=== PATIENT | male | born 1965 ===

== ENCOUNTER 2024-12-24 09:09 | Outpatient (AMB) | payer MEDICARE, SELFPAY ==
--- NOTE | 2024-12-24 09:16 | MHC.OFFWIV ---
Intake Vital Signs 12/24/24 09:19 Weight 207 lb BP 112/74 Blood Pressure Location Rt brachial Position Sitting Pulse 72 Pulse Source Pulse Oximeter Pulse Oximetry (%) 86 L Oxygen Delivery Method Room Air Intake Visit Reasons: [employer] Cough, bromide, albuterol refill Intake Note: Patient here for SOB. Hx of COPD but recently just moved and is looking for some refills. Do you need a note to return to daycare/school/sports/work: No HPI HPI Comments History of Present Illness Details This is a 59-year-old male with past medical history of COPD not currently oxygen dependent, bipolar disorder, ADHD and PTSD requesting refills for his nebulizer. Patient currently lives in a jail house in [facility] for management of polysubstance use however his last use of cocaine was over 6 weeks ago in his last use of fentanyl was in April 2024. Patient does not currently have a primary care provider of record. Patient states since April he has been treated consistently with antibiotic therapy as well as steroids. Patient has been using his Combivent every 2 hours over the past 1 week and states that he will occasionally feel confused ?because I am short of breath?. Patient has 2 more vials for his nebulizer but is requesting a refill. Patient does not currently use tobacco. He denies having any fevers, chills, hemoptysis or chest pain. Patient is oxygenating at 86% on room air. Review of Systems Const All systems reviewed & are unremarkable except as noted in HPI and below Reports no additional complaints Eyes Reports no additional complaints ENT Reports no additional complaints Card Reports no additional complaints, Denies chest pain, Reports dyspnea and Reports dyspnea on exertion Resp Reports no additional complaints, Reports cough, Denies hemoptysis, Reports dyspnea and Reports dyspnea on exertion GI Reports no additional complaints Reports no additional complaints Musc Reports no additional complaints Skin/Breast Reports system reviewed and no additional complaints, except as documented Neuro Reports no additional complaints Endo Reports no additional complaints Curry/Lymph Reports no additional complaints Aller/Immun Reports no additional complaints Physical Exam Patient is afebrile and hypoxic at 86% on room air. Const General: no acute distress, ill appearing and tired appearing; No healthy appearing Nutritional Appearance: average body habitus Orientation/consciousness: patient oriented x3 Limitations: no limitations Resp Effort & Inspection: decreased respiratory effort, labored and prolonged expiratory phase Auscultation: not clear to auscultation bilaterally, rhonchi and wheezes (left > right) Cardio Rate: regular rate Rhythm: regular rhythm Neuro General: patient oriented x3 Psych Appearance: grossly normal Mental Status: mental status grossly normal Affect: normal affect Attitude: cooperative Insight: Limited insight present (Psych) Judgement: Limited judgement present (Psych) Assessment & Plan Assessment & Plan (1) Hypoxia: Comment: Patient is hypoxic on room air. Patient will be transferred to the emergency department for further evaluation and care. Patient is declining ambulance transport and states that his friend will bring him directly to the ED. Code(s): R09.02 - Hypoxemia Plan: Patient will go to the ED via private vehicle; expect called to [facility]nan [id number], [facility] Coding Level of Care Code New Pt Level 4 (95784) Diagnoses Hypoxia R09.02
[2024-12-24 09:19] VITALS: BP 112/74; PULSE 72; O2SAT 86
--- OUTSIDE RECORDS SUMMARY | 2024-12-24 09:29 | XMS_ITS | Continuity of Care Document ---
Author Organization [facility] Address [address] [place] [address] [address] [place] [address] Phone Care Team Providers Care Clinical Quality Rn Name Role Phone Karan YANEZ, Ashok Unavailable Unavailable Allergies, Adverse Reactions, Alerts Substance Reaction Status Criticality oxycodone Unknown Active No Information codeine Unknown Active No Information gabapentin Unknown Active No Information DULOXETINE HCL Unknown Active No Informatio n tramadol seizure Active No Information aspirin Unknown Active No Information Medications Medication Instructions Dosage Effective Dates (start - stop) Status Comments testosterone 1 % (50 mg/5 gram) transdermal gel packet apply 2 packet by topical route every day 2 packet - Active Seroquel 200 mg tablet take 4 tablet by oral route every day 800 MG - Active Adderall 20 mg tablet take 1 tablet by oral route 2 times every day before breakfast 20 MG - Active MS Contin 30 mg tablet,extended release take 1 tablet by oral route every 8 hours 30 MG - Active morphine ER 15 mg tablet,extended release take 1 Tablet by oral route every 3 evenings for pain 1 Tablet - Active ranitidine 300 mg capsule take 1 capsule by oral route every day at bedtime - Active simvastatin 80 mg tablet take 1 tablet by oral route every day in the evening - Active metoclopramide 5 mg tablet take 1 tablet by oral route 4 times every day 30 minutes before meals and at bedtime 5 MG - Active COL-RITE (unknown strength) take 1 capsule by oral route every day at bedtime as needed Not Available - Active Brintellix 10 mg tablet take 1 tablet by oral route every day at the same time each day - Active Jalen Biotin 10,000 mcg capsule - Active vitamin B complex tablet take 1 by Oral route once 1 - Active levothyroxine 75 mcg tablet take 1 tab by Oral route every day 1 tab - Active Procedures Procedure Date Lab_Drug Screen NP_Office Visit Level 5 Advance Directives Directive Yes / No Effective Date File Name No Information Encounters Encounter Description Practice Location Reason(s) For Visit Diagnoses Date Provider [facility], [address] [place], [place] [address], [place], [place], [id number], tel:[phone] [facility] No Information Karan Pulido. [address] [place] [address], [facility], [place], [place], [id number], [place]. tel:[phone] NP_Office Visit Level 5 [facility], [address] [place], [place] [address], [place], [place], [id number], tel:[phone] [facility] Back Pain (chief complaint)L eg Pain (chief complaint) Opioid type dependence, continuous useTherapeutic Drug MonitoringSpondylosis with myelopathy, lumbar region Maryam Andrade. [address] [place] [address], [facility], . tel:[phone] Family History Family Member Type Diagnosis Age At Onset No Information Payers Payer name Insurance type Covered constitution party ID Authoriza tion(s) No Information Social History Type Description Quantity Date Captured Comments Sex Male Smoking Status No Information Chief Complaint And Reason For Visit No Information History Of Present Illness Encounter Date Complaint History Of Prese nt Illness Back Pain Leg Pain Instructions Date Instruction Additional Infor mation No Information Assessments Type Assessment Date No Information
== END 2024-12-24 09:56 | disposition home or self-care (01) ==
PROVIDERS: Visit Provider Physician Assistant
DX: R09.02 Hypoxemia (principal)

== ENCOUNTER → 2024-12-24 09:09 | Outpatient (BNVA) | payer MEDICARE, SELFPAY | PROVIDERS: Visit Provider Physician Assistant ==

== ENCOUNTER 2024-12-24 10:43 | Emergency (ER) | payer MEDICARE, SELFPAY ==
--- NOTE | ~2024-12-24 | XR_ITS ---
EXAMINATION: XR CHEST CLINICAL INFORMATION: SOB COMPARISON: None available. TECHNIQUE: 2 views of the chest were obtained. FINDINGS: Mild reticular pulmonary pattern. No gross consolidation, pleural effusion or pneumothorax. Cardiomediastinal silhouette size is normal. Multilevel thoracic spondylosis, mild. Intraspinal canal neurostimulator electrodes enter in the mid to lower thoracic spine and in at T8 level. XR/XR chest 2V IMPRESSION: No acute airspace disease. Electronically signed by: Vipul Yates MD 12/24/2024 11:53 AM EDT
[2024-12-24 11:27] VITALS: BP 105/73; PULSE 99; RESP 18; TEMP 36.7; O2SAT 89; BMI 29.6
--- NOTE | 2024-12-24 11:28 | ED_ITS ---
HPI - SOB/Dyspnea General Chief Complaint: Dyspnea Stated Complaint: SOB, COPD Time Seen by Provider: 12/24/24 11:55 Related Data Home Medications ?Medication ?Instructions ?Recorded ?Confirmed cholecalciferol (vitamin D3) 125 125 mcg PO QPM 12/24/24 mcg (5,000 unit) capsule ipratropium 0.5 mg-albuterol 3 mg ml inhalation 12/24/24 (2.5 mg base)/3 mL nebulization soln lamotrigine 200 mg tablet 200 mg PO DAILY 12/24/24 levothyroxine 50 mcg tablet 50 mcg PO DAILY 12/24/24 melatonin 5 mg tablet 5 mg PO BEDTIME PRN insomnia 12/24/24 quetiapine 400 mg tablet 600 mg PO BID 12/24/24 Previous Rx's ?Medication ?Instructions ?Recorded ipratropium 0.5 mg-albuterol 3 mg 3 ml inhalation Q6-8H PRN 12/24/24 (2.5 mg base)/3 mL nebulization shortness of breath or wheezing 30 soln days #90 mL Allergies Allergy/AdvReac Type Severity Reaction Status Date / Time No Known Allergies Allergy Verified 12/24/24 11:30 [facility] Social History Social History Advance Directives: No Advance Directives Information Provided: Yes Physical Exam 2 Vital Signs: Vital Signs: Last Vital Signs Temp 98.4 F 12/24/24 14:44 Pulse 90 12/24/24 14:44 Resp 20 12/24/24 14:44 BP 105/66 12/24/24 14:44 Pulse Ox 90 L 12/24/24 14:44 O2 Del Method Room Air 12/24/24 14:44 BMI result Body Mass Index 29.6 Course Course Course Narrative: This is an RME: Additional HPI, ROS, PE not included below will be deferred to primary provider. RME assessment and note performed by: Deirdre Schaefer PA-C This is a 59-year-old male with past medical history of COPD not currently oxygen dependent, bipolar disorder, ADHD and PTSD who presents to the ER with concerns for shortness of breath. Went to Urgent care this AM and was requesting refills for his nebulizer. Currently living in [facility]. Unable to see PCP until September 2025. Reports SOB. Fluctuating between 89-94%. Inspiratory/expiratory wheezes and diminished on exam. No peripheral edema noted. Seen at [facility] 2 weeks ago and was d/c on steroids and antibiotics, denies being diagnosed with pneumonia. Further ER eval needed Plan: Labs, EKG, CXR, viral swabs, further ER eval needed Reevaluation(s) Reevaluation #1: duplicate chart. Medications Administered Discontinued Medications Generic Name Dose Route Start Last Admin Trade Name Freq PRN Reason Stop Dose Admin Albuterol Sulfate 2.5 mg/ 0 mg 12/24/24 12:12 12/24/24 12:15 Albuterol/Ipratropium 3 ml INHALE 12/24/24 12:13 1 dose ONCE ONE Administration Medical Decision Making Lab Data 12/24/24 11:52 12/24/24 11:52 Labs: Lab Results 12/24/24 Range/Units 11:52 WBC 7.7 (4.8-10.8) X10*3/uL RBC 4.30 L (4.60-5.80) X10*6/uL Hgb 13.4 L (14.0-18.0) g/dl Hct 39.7 L (42.0-52.0) % MCV 92.3 (80.0-98.0) fL MCH 31.2 (27.0-33.0) pg MCHC 33.8 (31.0-36.0) g/dl RDW 12.7 (11.0-16.0) % Plt Count 172 (160-400) X10*3/uL MPV 8.8 L (9.4-12.4) fL Immature Gran % (Auto) 0.3 (0.0-0.4) % Neut % (Auto) 60.6 (45-73) % Lymph % (Auto) 25.4 (20-40) % [place] % (Auto) 9.9 (2-11) % Eos % (Auto) 3.2 (0-4) % Baso % (Auto) 0.6 (0-2) % Lymph # (Auto) 2.0 (1.2-4.9) X10*3/uL [place] # (Auto) 0.8 (0.1-1.2) X10*3/uL Eos # (Auto) 0.3 (0.0-0.4) X10*3/uL Baso # (Auto) 0.1 (0.0-0.2) X10*3/uL Abs Immat Gran (auto) 0.02 (0.00-0.03) X10*3/uL Absolute Neuts (auto) 4.7 (2.0-8.3) x10*3/uL Absolute Nucleated RBC 0.000 (0.0-0.012) X10*3/uL Nucleated RBC % (auto) 0.0 (0.0-0.2) /100WBC Sodium 138 (135-145) mmol/L Potassium 4.2 (3.3-5.1) mmol/L Chloride 101 (96-108) mmol/L Carbon Dioxide 29 (22-29) mmol/L Anion Gap 12 (12-20) BUN 13 (9-16) mg/dL Creatinine 0.97 (0.5-1.4) mg/dL Estim Creat Clear Calc 94.1 Estimated GFR > 60 Random Glucose 111 (60-115) mg/dL Calcium 10.0 (8.4-10.2) mg/dL Magnesium 1.9 (1.6-2.6) mg/dL Total Bilirubin 0.3 (0.0-1.0) mg/dL Direct Bilirubin 0.1 (0.0-0.5) mg/dL AST 31 (5-37) U/L ALT 32 (0-40) U/L Alkaline Phosphatase 98 (39-117) U/L Troponin I High Sens < 2.7 (<3.5-35.0) ng/L B-Natriuretic Peptide < 10 (<100) pg/mL Total Protein 7.5 (6.5-8.0) g/dL Albumin 4.4 (3.5-5.0) g/dL Influenza Type A (PCR) NEGATIVE (Negative) Influenza Type B (PCR) NEGATIVE (Negative) RSV RNA Qual (PCR) NEGATIVE (Negative) SARS-CoV-2 RNA (RT-PCR) NEGATIVE (Negative) Discharge Plan Discharge Clinical Impression: Encounter for medication refill, COPD (chronic obstructive pulmonary disease) Patient Disposition: Home, Self-Care Instructions: COPD (Chronic Obstructive Pulmonary Disease) (ED), Medicine Refill (ED) Additional Instructions: You were evaluated in the ED today due to needs for a medication refill of your ipratropium albuterol solution. Your chest x-ray did not show any emergent airspace disease. Your EKG did not reveal any emergent cardiac process. Your viral swabs including COVID/flu/RSV were negative. Your lab work was normal. On your physical exam you did have some expiratory wheezing on the right side you received a nebulizer treatment while in the department. You were prescribed the ipratropium albuterol solution for your home nebulizer. You can present to the [facility] [place] during business hours for assistance in obtaining a PCP. Please return to the emergency department if you experience fevers over 100.4?, shortness of breath, chest pain, productive cough, difficulty breathing, or any new/concerning/worsening symptoms. Prescriptions: New ipratropium-albuterol 0.5 mg-3 mg(2.5 mg base)/3 mL solution for nebulization 3 ml inhalation Q6-8H PRN (Reason: shortness of breath or wheezing) 30 Days Qty: 90 0RF No Action ipratropium-albuterol 0.5 mg-3 mg(2.5 mg base)/3 mL solution for nebulization inhalation cholecalciferol (vitamin D3) 125 mcg (5,000 unit) capsule 125 mcg PO QPM quetiapine 400 mg tablet 600 mg PO BID levothyroxine 50 mcg tablet 50 mcg PO DAILY lamotrigine 200 mg tablet 200 mg PO DAILY melatonin 5 mg tablet 5 mg PO BEDTIME PRN (Reason: insomnia) Interventions: ED Discharge Assessment Last Done: 12/24/24 14:44 Discharge Date/Time: 12/24/24 14:49 Print Language: Croatian
[2024-12-24 11:31] VITALS: O2SAT 93
--- NOTE | 2024-12-24 11:31 | ECG_ITS ---
Test Reason : sob Blood Pressure : */* mmHG Vent. Rate : 92 BPM Atrial Rate : 92 BPM P-R Int : 180 ms QRS Dur : 98 ms QT Int : 358 ms P-R-T Axes : 71 31 60 degrees QTcB Int : 442 ms Normal sinus rhythm Possible Inferior infarct , age undetermined Abnormal ECG No previous ECGs available Referred By: Deirdre Schaefer Electronically Signed By: DEQUAN SMITH MD
[2024-12-24 11:58] LABS: MANUAL DIFF FLAG NO
[2024-12-24 12:00] LABS: Basophils Absolute Auto 0.1 X10*3/uL (0.0-0.2); Basophils Percent Auto 0.6 % (0-2); Eosinophils Absolute Auto 0.3 X10*3/uL (0.0-0.4); Eosinophils Percent Auto 3.2 % (0-4); Hematocrit 39.7 % (42.0-52.0); Hemoglobin 13.4 g/dl (14.0-18.0); Imm Gran Abs Auto 0.02 X10*3/uL (0.00-0.03); Imm Gran Pct Auto 0.3 % (0.0-0.4); Lymphocytes Percent Auto 25.4 % (20-40); Mean Corpuscular HGB Conc 33.8 g/dl (31.0-36.0); Mean Corpuscular Hemoglobin 31.2 pg (27.0-33.0); Mean Corpuscular Volume 92.3 fL (80.0-98.0); Mean Platelet Volume 8.8 fL (9.4-12.4); Monocytes Absolute Auto 0.8 X10*3/uL (0.1-1.2); Monocytes Percent Auto 9.9 % (2-11); Neutrophils Absolute Auto 4.7 x10*3/uL (2.0-8.3); Neutrophils Percent Auto 60.6 % (45-73); Platelet Count 172 X10*3/uL (160-400); Red Cell Distribution Width 12.7 % (11.0-16.0); White Blood Count 7.7 X10*3/uL (4.8-10.8)
[2024-12-24] MEDS: Albuterol Sulfate 2.5 MG, Albuterol/Iprat 2.5/0.5MG 3 ML 3 ML INHALE (12:15)
[2024-12-24 12:18] VITALS: PULSE 92; RESP 16; O2SAT 91
[2024-12-24 12:21] LABS: B Type Natriuretic Peptide < 10 pg/mL (<100)
[2024-12-24 12:22] LABS: Alanine Aminotransferase 32 U/L (0-40); Albumin Level 4.4 g/dL (3.5-5.0); Alkaline Phosphatase 98 U/L (39-117); Anion Gap 12 (12-20); Aspartate Amino Transferase 31 U/L (5-37); Bilirubin Direct 0.1 mg/dL (0.0-0.5); Bilirubin Total 0.3 mg/dL (0.0-1.0); Blood Urea Nitrogen 13 mg/dL (9-16); Carbon Dioxide 29 mmol/L (22-29); Chloride 101 mmol/L (96-108); Creatinine Clr Calc Pharmacy 94.1; Estimated Glomerular Filt Rate > 60; Glucose Random 111 mg/dL (60-115); Magnesium 1.9 mg/dL (1.6-2.6); Potassium 4.2 mmol/L (3.3-5.1); Sodium 138 mmol/L (135-145); Total Protein 7.5 g/dL (6.5-8.0)
[2024-12-24 12:23] LABS: Troponin-I High Sensitivity < 2.7 ng/L (<3.5-35.0)
[2024-12-24 12:38] LABS: Influenza A PCR NEGATIVE (Negative); Influenza B PCR NEGATIVE (Negative); Resp Syncy Virus RNA Qual PCR NEGATIVE (Negative); SARS COV2 PCR INHOUSE NEGATIVE (Negative)
[2024-12-24 13:45] VITALS: BP 105/66; PULSE 90; RESP 20; TEMP 36.9; O2SAT 90
--- NOTE | 2024-12-24 13:58 | ED_ITS ---
HPI - General Adult General Chief complaint: Dyspnea Stated complaint: SOB, COPD Time Seen by Provider: 12/24/24 11:55 Source: patient Mode of arrival: ambulatory Limitations: no limitations History of Present Illness ED Provider: Ramirez Gray PA-C HPI narrative: 59-year-old male with medical history of COPD, bipolar disorder, ADHD, PTSD presents to the ED today due to the need of medication refill of ipratropium albuterol solution for home nebulizer. Patient states 10 days ago he was seen in urgent care and prescribed a course of antibiotics and prednisone for COPD exacerbation. He states he finished both of these prescription. He states that he does not have access to primary care provider at this time and has ran out of his ipratropium and albuterol solution for his home nebulizer. He states he is asymptomatic today. Denies fever, chills, chest pain, shortness of breath, cough, headache, abdominal pain, nausea, vomiting, black/tarry stool, urinary symptoms. MD complaint: med refill needed Related Data Home Medications ?Medication ?Instructions ?Recorded ?Confirmed cholecalciferol (vitamin D3) 125 125 mcg PO QPM 12/24/24 mcg (5,000 unit) capsule ipratropium 0.5 mg-albuterol 3 mg ml inhalation 12/24/24 (2.5 mg base)/3 mL nebulization soln lamotrigine 200 mg tablet 200 mg PO DAILY 12/24/24 levothyroxine 50 mcg tablet 50 mcg PO DAILY 12/24/24 melatonin 5 mg tablet 5 mg PO BEDTIME PRN insomnia 12/24/24 quetiapine 400 mg tablet 600 mg PO BID 12/24/24 Previous Rx's ?Medication ?Instructions ?Recorded ipratropium 0.5 mg-albuterol 3 mg 3 ml inhalation Q6-8H PRN 12/24/24 (2.5 mg base)/3 mL nebulization shortness of breath or wheezing 30 soln days #90 mL Allergies Allergy/AdvReac Type Severity Reaction Status Date / Time No Known Allergies Allergy Verified 12/24/24 11:30 Review of Systems 2 Review of Systems: CONST: Negative for fever, body aches and chills. HENT: Negative for neck pain/stiffness, headache, congestion, sore throat, swelling. EYES: Negative for discharge/pain or vision changes. RESP: Negative for cough/hemoptysis and shortness of breath. CV: Negative chest pain, difficulty breathing, palpitations. ABD: Negative pain, nausea, vomiting. : Negative increase frequency, dysuria, blood in urine or stool. MUSC: Negative for muscle aches, edema. SKIN: Negative rash, lesions/sores. NEURO: Negative headache, dizziness, weakness. Yes all other systems are reviewed and are negative PMFSH Past Medical History Attestation statement: The following information was validated with the patient. Source: old records reviewed and nursing notes reviewed Social History Social History Advance Directives: No Advance Directives Information Provided: Yes Physical Exam ED Vital Signs: Vital Signs - 24 hr 12/24/24 11:27 12/24/24 11:31 12/24/24 12:18 Temperature 98.0 F Pulse Rate 99 92 Respiratory Rate 18 16 Blood Pressure 105/73 Pulse Oximetry 89 L 93 Oxygen Delivery Method Room Air Room Air 12/24/24 13:45 12/24/24 14:44 Temperature 98.4 F 98.4 F Pulse Rate 90 90 Respiratory Rate 20 20 Blood Pressure 105/66 105/66 Pulse Oximetry 90 L 90 L Oxygen Delivery Method Room Air Room Air BMI result Body Mass Index 29.6 GENERAL APPEARANCE: ?AxOx4, generally well-appearing, no acute distress. HEENT: ?NC, AT. MMM. EOMI, clear conjunctiva, oropharynx clear. NECK: ?Supple without lymphadenopathy.? No stiffness or restricted ROM. HEART:? Normal rate and regular rhythm, normal S1/S1, no m/r/g LUNGS:? No increased work of breathing, No crackles, rales heard. End expiratory wheeze appreciated on right side ABDOMEN: ?Soft, nontender, nondistended with good bowel sounds heard. BACK: No CVAT, no obvious deformity. EXTREMITIES: ?Without cyanosis, clubbing or edema. NEUROLOGICAL: ?Grossly nonfocal. Alert and oriented, moving all 4 extremities. Observed to ambulate with normal gait. Skin: ?Warm and dry without any rash. Medications Administered Discontinued Medications Generic Name Dose Route Start Last Admin Trade Name Freq PRN Reason Stop Dose Admin Albuterol Sulfate 2.5 mg/ 0 mg 12/24/24 12:12 12/24/24 12:15 Albuterol/Ipratropium 3 ml INHALE 12/24/24 12:13 1 dose ONCE ONE Administration Medical Decision Making Medical Decision Making [facility] Narrative: 59-year-old male with medical history of COPD, bipolar disorder, ADHD, PTSD presents to the ED today due to the need of medication refill of ipratropium albuterol solution for home nebulizer. Patient states 10 days ago he was seen in urgent care and prescribed a course of antibiotics and prednisone for COPD exacerbation. He states he finished both of these prescription. He states that he does not have access to primary care provider at this time and has ran out of his ipratropium and albuterol solution for his home nebulizer. He states he is asymptomatic today. VSS, O2 saturation between 89 and 90%, patient states this is his baseline due to COPD, is not on home O2. Does not feel short of breath, no increased work of breathing, speaking in clear sentences. In no acute distress, nontoxic appearing. On physical exam there is end expiratory wheezing heard on the right side, otherwise benign exam. EKG does not reveal any ST elevation/depression/T- wave abnormalities, initial troponin WNL-less likely ACS. Chest x-ray does not show any acute cardiopulmonary processes. Labs unremarkable. Viral swabs including flu/RSV/COVID negative. Patient states he has not have a PCP at this time patient was counseled to present to [facility] main entrance for assistance in obtaining PCP. Patient was given nebulizer treatment in the ED by respiratory therapy due to end expiratory wheezing of the right side. Patient states he feels great, asymptomatic, and was here for ipratropium albuterol solution refill as he does not have any for his nebulizer machine at home. Patient counseled on strict return precautions. Differential Diagnosis Differential Diagnoses: The differential diagnosis associated with the presentation includes ACS COPD COVID Flu Viral illness Encounter for med refill Admission/Observation Consideration of admission/observation: Escalation of care including admission/observation considered Lab Data [facility] Lab Attestation statement: I reviewed the patient's lab results. 12/24/24 11:52 12/24/24 11:52 Labs: Lab Results 12/24/24 Range/Units 11:52 WBC 7.7 (4.8-10.8) X10*3/uL RBC 4.30 L (4.60-5.80) X10*6/uL Hgb 13.4 L (14.0-18.0) g/dl Hct 39.7 L (42.0-52.0) % MCV 92.3 (80.0-98.0) fL MCH 31.2 (27.0-33.0) pg MCHC 33.8 (31.0-36.0) g/dl RDW 12.7 (11.0-16.0) % Plt Count 172 (160-400) X10*3/uL MPV 8.8 L (9.4-12.4) fL Immature Gran % (Auto) 0.3 (0.0-0.4) % Neut % (Auto) 60.6 (45-73) % Lymph % (Auto) 25.4 (20-40) % Frontier % (Auto) 9.9 (2-11) % Eos % (Auto) 3.2 (0-4) % Baso % (Auto) 0.6 (0-2) % Lymph # (Auto) 2.0 (1.2-4.9) X10*3/uL Frontier # (Auto) 0.8 (0.1-1.2) X10*3/uL Eos # (Auto) 0.3 (0.0-0.4) X10*3/uL Baso # (Auto) 0.1 (0.0-0.2) X10*3/uL Abs Immat Gran (auto) 0.02 (0.00-0.03) X10*3/uL Absolute Neuts (auto) 4.7 (2.0-8.3) x10*3/uL Absolute Nucleated RBC 0.000 (0.0-0.012) X10*3/uL Nucleated RBC % (auto) 0.0 (0.0-0.2) /100WBC Sodium 138 (135-145) mmol/L Potassium 4.2 (3.3-5.1) mmol/L Chloride 101 (96-108) mmol/L Carbon Dioxide 29 (22-29) mmol/L Anion Gap 12 (12-20) BUN 13 (9-16) mg/dL Creatinine 0.97 (0.5-1.4) mg/dL Estim Creat Clear Calc 94.1 Estimated GFR > 60 Random Glucose 111 (60-115) mg/dL Calcium 10.0 (8.4-10.2) mg/dL Magnesium 1.9 (1.6-2.6) mg/dL Total Bilirubin 0.3 (0.0-1.0) mg/dL Direct Bilirubin 0.1 (0.0-0.5) mg/dL AST 31 (5-37) U/L ALT 32 (0-40) U/L Alkaline Phosphatase 98 (39-117) U/L Troponin I High Sens < 2.7 (<3.5-35.0) ng/L B-Natriuretic Peptide < 10 (<100) pg/mL Total Protein 7.5 (6.5-8.0) g/dL Albumin 4.4 (3.5-5.0) g/dL Influenza Type A (PCR) NEGATIVE (Negative) Influenza Type B (PCR) NEGATIVE (Negative) RSV RNA Qual (PCR) NEGATIVE (Negative) SARS-CoV-2 RNA (RT-PCR) NEGATIVE (Negative) Independent Interpretation Interpretation: I independently interpreted the EKG Vent. Rate : 92 BPM Atrial Rate : 92 BPM P-R Int : 180 ms QRS Dur : 98 ms QT Int : 358 ms P-R-T Axes : 71 31 60 degrees QTcB Int : 442 ms Normal sinus rhythm Possible Inferior infarct , age undetermined Abnormal ECG No previous ECGs available Radiology Impression Discussion of test interpretation with radiology: I have reviewed the radiologist's reading. Radiologist Impression: FINDINGS: Mild reticular pulmonary pattern. No gross consolidation, pleural effusion or pneumothorax. Cardiomediastinal silhouette size is normal. Multilevel thoracic spondylosis, mild. Intraspinal canal neurostimulator electrodes enter in the mid to lower thoracic spine and in at T8 level. XR/XR chest 2V IMPRESSION: No acute airspace disease. Electronically signed by: Vipul Yates MD 12/24/2024 11:53 AM EDT Dictated By: Vipul Ingram MD Signed By: <Electronically signed by Vipul Yost MD in OV> 12/24/24 1154 External Record Review External record reviewed: Inpatient record, Office record and Outpatient record Chronic Conditions Patient?s care impacted by: Other (COPD) Discharge Plan Discharge Clinical Impression: Encounter for medication refill COPD (chronic obstructive pulmonary disease) Qualifiers: COPD type: unspecified COPD Qualified Code(s): J44.9 - Chronic obstructive pulmonary disease, unspecified Patient Disposition: Home, Self-Care Instructions: COPD (Chronic Obstructive Pulmonary Disease) (ED), Medicine Refill (ED) Additional Instructions: You were evaluated in the ED today due to needs for a medication refill of your ipratropium albuterol solution. Your chest x-ray did not show any emergent airspace disease. Your EKG did not reveal any emergent cardiac process. Your viral swabs including COVID/flu/RSV were negative. Your lab work was normal. On your physical exam you did have some expiratory wheezing on the right side you received a nebulizer treatment while in the department. You were prescribed the ipratropium albuterol solution for your home nebulizer. You can present to the [facility] main entrance during business hours for assistance in obtaining a PCP. Please return to the emergency department if you experience fevers over 100.4?, shortness of breath, chest pain, productive cough, difficulty breathing, or any new/concerning/worsening symptoms. Prescriptions: New ipratropium-albuterol 0.5 mg-3 mg(2.5 mg base)/3 mL solution for nebulization 3 ml inhalation Q6-8H PRN (Reason: shortness of breath or wheezing) 30 Days Qty: 90 0RF No Action ipratropium-albuterol 0.5 mg-3 mg(2.5 mg base)/3 mL solution for nebulization inhalation cholecalciferol (vitamin D3) 125 mcg (5,000 unit) capsule 125 mcg PO QPM quetiapine 400 mg tablet 600 mg PO BID levothyroxine 50 mcg tablet 50 mcg PO DAILY lamotrigine 200 mg tablet 200 mg PO DAILY melatonin 5 mg tablet 5 mg PO BEDTIME PRN (Reason: insomnia) Interventions: ED Discharge Assessment Last Done: 12/24/24 14:44 Discharge Date/Time: 12/24/24 14:49 Print Language: Telugu
[2024-12-24 14:44] VITALS: BP 105/66; PULSE 90; RESP 20; TEMP 36.9; O2SAT 90
== END 2024-12-24 14:49 | disposition home or self-care (01) ==
PROVIDERS: Physician Assistant Medical; Emergency Provider Emergency Medicine Emergency Medical Services
DX: R06.02 Shortness of breath (principal); J44.9 Chronic obstructive pulmonary disease, unspecified; F90.9 Attention-deficit hyperactivity disorder, unspecified type; Z76.0 Encounter for issue of repeat prescription; Z03.818 Encounter for observation for suspected exposure to other biological agents ruled out; Z79.899 Other long term (current) drug therapy
CPT/HCPCS: 0241U; 71046; 80048; 80076; 83735; 83880; 84484; 85025; 93005; 94640; 99202; 99284

== ENCOUNTER → 2024-12-24 11:31 | Outpatient (BNV) | payer MEDICARE, SELFPAY | PROVIDERS: Emergency Provider Emergency Medicine Emergency Medical Services; Visit Provider Radiology Diagnostic Radiology | DX: R06.02 Shortness of breath (principal) | CPT/HCPCS: 71046 ==

== ENCOUNTER → 2024-12-24 11:31 | Outpatient (BNV) | payer MEDICARE, SELFPAY | PROVIDERS: Emergency Provider Emergency Medicine Emergency Medical Services; Visit Provider Internal Medicine Cardiovascular Disease | DX: R94.31 Abnormal electrocardiogram [ECG] [EKG] (principal); R06.02 Shortness of breath | CPT/HCPCS: 93010 ==